=== PATIENT | male | born 1995 | race Caucasian/White ===

== ENCOUNTER 2019-08-16 22:52 | Emergency (ER) | payer BC, SELFPAY ==
[2019-08-16] MEDS ORDERED: Ondansetron PF 4 MG/2 ML Vial ONE (23:25)
[2019-08-16 23:30] LABS: #Basophils 0.1 thou/uL (0.0-0.2); #Eosinphils 0.2 thou/uL (0.0-0.7); #Lymphocytes 2.5 thou/uL (1.20-3.40); #Monocytes 0.8 thou/uL (0.11-0.59); #Neutrophils 6.9 thou/uL (1.40-6.50); %Basophils 0.7 % (0.0-1.0); %Eosinophils 1.5 % (0.0-10.0); %Lymphocytes 23.8 % (21.0-51.0); %Monocytes 7.8 % (0.0-10.0); %Neutrophils 66.1 % (42.0-75.0); Hemoglobin 16.5 g/dL (14.0-18.0); Mean Corpuscular HGB CONC 34.9 g/dL (32.0-36.0); Mean Corpuscular Hemoglobin 32.2 pg (27.0-31.0); Mean Corpuscular Volume 92.4 fL (78.0-98.0); Mean Platelet Volume 8.4 fL (7.4-10.4); Platelet Count 259 thou/uL (130-400); RBC Distribution Width 11.3 % (11.5-14.5); Red Blood Cell (RBC) Count 5.13 mill/uL (4.70-6.10); White Blood Cell (WBC) Count 10.5 thou/uL (4.8-10.8)
[2019-08-16] MEDS ORDERED: Acetaminophen 500 MG TAB ONE (23:38)
--- NOTE | 2019-08-16 23:42 | CT ---
CT Brain WO Con: 08/16/2019 11:03 PM CLINICAL HISTORY: Seizures. IMAGING TECHNIQUE: Multiple CT images were obtained of the brain without IV contrast. COMPARISON: CT the brain dated January 21, 2011 FINDINGS: Brain: No acute infarct or hemorrhage is evident. No midline shift. Ventricles: Normal. No hydrocephalus. Skull: Intact. Visualized Paranasal sinuses: Clear. Mastoid air cells:Clear. Extracranial soft tissues:Normal. IMPRESSION: No acute intracranial abnormality.
[2019-08-16 23:51] LABS: ALT (SGPT) 20 U/L (8-55); AST (SGOT) 20 U/L (5-34); Alkaline Phosphatase 49 U/L (40-110); Anion Gap 12 mmol/L (10-20); BUN (Urea Nitrogen) 14 mg/dL (8.9-20.6); Bilirubin, Total 0.4 mg/dL (0.2-1.2); Calc. Creatinine Clearance 0 mL/min (70-130); Calcium 10.2 mg/dL (7.8-10.44); Carbon Dioxide 28 mmol/L (22-29); Chloride 102 mmol/L (98-107); Estimated GFR-MDRD 83; Globulin 2.8 g/dL (2.4-3.5); Glucose 105 mg/dL (70-105); Potassium 4.1 mmol/L (3.5-5.1); Protein, Total 7.8 g/dL (6.0-8.3); Sodium 138 mmol/L (136-145)
[2019-08-17 00:24] LABS: Bacteria/HPF None Seen HPF (None Seen); Bilirubin Negative (Negative); Blood, Urine Trace (Negative); Clarity Turbid (Clear); Glucose, Urine (Dipstick) Normal (Negative); Leukocyte Negative Leu/uL (Negative); Mucous/LPF Rare LPF (<2+); Nitrite Negative (Negative); Protein, Urine (Dipstick) 70 mg/dL (Neg-Trace); Squamous Epithelial None Seen HPF (0-3); Urobilinogen 3 mg/dL (Less than 2)
[2019-08-17 00:29] LABS: Amphetamine Not Detected (NotDetected); Barbiturates Screen Not Detected (NotDetected); Benzodiazepine Screen Not Detected (NotDetected); Cocaine Metabolite Screen Not Detected (NotDetected); Medtox Reader # READER 4; Methadone Not Detected (NotDetected); Methamphetamine Not Detected (NotDetected); Opiate Screen Not Detected (NotDetected); Oxycodone Screen Not Detected (NotDetected); Phencyclidine (PCP) Not Detected (NotDetected); THC/Cannabinoid Screen Not Detected (NotDetected); Tricyclic Screen Not Detected (NotDetected)
[2019-08-17 00:30] LABS: Medtox Control Line Valid? VALID (VALID)
[2019-08-17 00:31] LABS: Sperm/HPF 4+ HPF (None Seen)
== END 2019-08-17 01:44 | disposition home or self-care (01) ==
LOC: ERS 22:52
DX: R56.9 Unspecified convulsions (principal); S00.83XA Contusion of other part of head, initial encounter; F17.210 Nicotine dependence, cigarettes, uncomplicated; W01.198A Fall on same level from slipping, tripping and stumbling with subsequent striking against other object, initial encounter
CPT/HCPCS: 70450; 80053; 80306; 81003; 81015; 84484; 85025; 93005; 96361; 96374; J2405